=== PATIENT | female | born 1955 | race Caucasian/White ===

== ENCOUNTER 2019-09-04 11:50 | Emergency (ER) | payer OTHER ==
[~2019-09-04] VITALS: Ht 157.5 cm; Wt 131.5 kg
[2019-09-04] MEDS ORDERED: SYNTHROID25 MCG PO ×2 (12:07)
[2019-09-04] MEDS ORDERED: LIPITOR20 MG PO (12:08)
[2019-09-04] MEDS ORDERED: CEFUROXIME500 MG PO (17:57)
== END 2019-09-04 18:38 | disposition home or self-care (01) ==
LOC: ED 11:50
PROC: 0T9B70Z Drainage of Bladder with Drainage Device, Via Natural or Artificial Opening (ICD-10-PCS; principal; 2019-09-04)
DX: N39.0 Urinary tract infection, site not specified (principal); E87.6 Hypokalemia; Z88.5 Allergy status to narcotic agent; Z79.899 Other long term (current) drug therapy
CPT/HCPCS: 36415; 51701; 72100; 72148; 73502; 80053; 81001; 85025; 85651; 86140; 87077; 87088; 87186; 99284-25; J0696; J1100